=== PATIENT | male | born 1955 | race Caucasian/White ===

== ENCOUNTER → 2019-05-02 10:26 | Outpatient (CLI) | payer BC, SELFPAY ==
--- NOTE | ~2019-05-02 | XR_ITS ---
EXAMINATION: XR hand LT min 3V DATE: 05/02/2019 11:02 INDICATION: Left hand pain. TECHNIQUE: 3 views of left hand were obtained. COMPARISON: None. FINDINGS: Bone alignment is normal. No fracture. There is mild osteoarthritis of triscaphe joint and distal radioulnar joint, severe osteoarthritis of first carpometacarpal joint, and mild osteoarthriti s of first through fourth metacarpophalangeal joints and most of the interphalangeal joints. IMPRESSION: 1. Polyarticular osteoarthritis. Reviewed, dictated and finalized at location A. Y ORDER CLERK
== END ==
DX: M19.042 Primary osteoarthritis, left hand (principal)
CPT/HCPCS: 73130

== ENCOUNTER → 2019-06-01 13:49 | Outpatient (CLI) | payer BC, SELFPAY ==
--- NOTE | ~2019-06-01 | MR_ITS ---
EXAMINATION: MR brain/brain stem wo con DATE: 06/01/2019 15:04 INDICATION: History of TIA. Recent sudden increase in falls and memory. TECHNIQUE: Magnetic resonance imaging (MRI) of the brain and brainstem was performed without intraven ous contrast. Sequences included sagittal and axial T1-weighted SE, axial diffusion-weighted FS SE, a xial T2*-weighted GRE, axial T2-weighted FLAIR Propeller, and axial T2-weighted Propeller. Apparent d iffusion coefficient (ADC) maps were created. COMPARISON: MRI dated 05/16/2017. FINDINGS: No evidence for acute infarction or hemorrhage. No ventriculomegaly or midline shift. There are scattered mild periventricular and subcortical white matter changes, most likely related to smal l vessel ischemic disease (microangiopathy). There are areas of increased T2-weighted signal in the p ons unchanged, also likely chronic small vessel ischemic disease. Orbits are symmetric. No abnormal m asses or mass effect. IMPRESSION: 1. No acute intracranial abnormality. No significant interval change. 2: Chronic age-related findings. This Reviewed, dictated and finalized at location A.
--- NOTE | ~2019-06-01 | US_ITS ---
EXAMINATION: US carotid duplex BI DATE: 06/01/2019 14:37 INDICATION: TIA. TECHNIQUE: Grayscale, color Doppler, and pulsed Doppler images of the cervical carotid arteries were obtained. The degree of vessel stenosis is placed in one of the following categories: normal, <50%, 5 0-69%, >=70% but less than near-occlusion, near-occlusion, or total occlusion. Note that percent sten osis relative to normal distal artery lumen diameter is indirectly measured from velocity measurement s as described by Ricky, et al. Radiology 2003; [id number]:340-346. Notes: Normal: Peak systolic velocity <125 centimeters/sec and no plaque <50%. Peak systolic velocity <125 ( EDV <40; ICA/CCA PSV ratio <2.0; used these factors only a tandem lesions or low cardiac output or co ntralateral disease) 50-69 %: PSV 125-230 (EDV 40-100; ratio 2-4) >= 70% but less than near occlusion: PSV greater than 230 (EDV > 100; ratio> 4.0) Near Occlusion: PSV that is variable; markedly narrowed lumen Occlusion: Absent flow on color/spectral Doppler and no lumen on pinto scale. COMPARISON: None. FINDINGS: RIGHT: The right common carotid artery (CCA) peak systolic velocity (PSV) is 97 cm/s. The right internal car otid artery (ICA) PSV is 68 cm/s. The right ICA end-diastolic velocity (EDV) is 18 cm/s. The right IC A/CCA PSV ratio is 0.7. The external carotid artery (ECA) PSV is 99 cm/s. There is antegrade flow in the right vertebral artery. LEFT: The left CCA PSV is 92 cm/s. The left ICA PSV is 53 cm/s. The left ICA EDV is 12 cm/s. The left ICA/C CA PSV ratio is 0.6. The ECA PSV is 113 cm/s. There is antegrade flow in the left vertebral artery. IMPRESSION: 1. Less than 50% stenosis in the right internal carotid artery by sonographic criteria. 2. Less than 50% stenosis in the left internal carotid artery by sonographic criteria. Reviewed, dictated and finalized at location A. IMPRESSION: 1. Less than 50% stenosis in the right internal carotid artery by sonographic kirk gregorio. 2. Less than 50% stenosis in the left internal carotid artery by sonographic freddy moreno.
== END ==
PROVIDERS: PCP Family Medicine; Visit Provider Family Medicine
DX: Z86.73 Personal history of transient ischemic attack (TIA), and cerebral infarction without residual deficits (principal)
CPT/HCPCS: 70551; 93880